=== PATIENT | male | born 1975 | race Caucasian/White ===

== ENCOUNTER 2016-12-04 20:34 | Emergency (ER) | payer BC ==
[~2016-12-04] VITALS: Ht 175.3 cm; Wt 104.3 kg
[~2016-12-04 20:34] MED LIST: BUDEPRION XL150 MG PO; CARTIA XT240 MG PO; CYCLOBENZ5 MG PO; CYMBALTA30 MG PO; FLOMAX 0.4MG C0.4 MG PO; HYDROCODONE-APA1 TA1 PO; LOSARTAN POTASS50 MG PO; MEDROL 4MG. DOSE4 MG PO; NEXIUM40 MG PO; NORCO 325 MG-51 TAB PO; PERCOCET 10 MG1 EACH PO; PERCOCET 5/3251 EACH PO; PREDNISONE 20MG20 MG PO; STRATTERA25 MG PO; WELLBUTRIN 150150 MG PO; WELLBUTRIN SR200 MG PO; WELLBUTRIN XL150 MG PO
--- NOTE | 2016-12-04 21:00 | Emergency Room Report ---
History of Present Illness Time Seen by 2030 Presenting Problem in Triage Pt arrived:Walked Presenting Problem:PT STATES HE ONLY HAS LEFT KIDNEY, FEELS LIKE IT IS BLOCKED. VOIDING REGULARLY TODAY. PAIN IN LEFT SIDE BEGAN AT APPROX 1300 Onset of symptoms date/time:12/04/16 or onset unknown for: Treatment Prior to Arrival: TOOK 3 5MG NORCO TODAY [employer] Provided by:LAYPERSON Sepsis Risk Assessment: Temp: 97.4 B/P: 153/99 MAP: 117 Pulse: 88 Resp: 20 Recent fever? N Clinical Suspician of Infection? N Mental Status: 1 - Regular (Normal Baseline) Sepsis Risk:Low Sepsis Risk Have you (or family members/close friends) recently traveled outside the [place]? N If Yes, where/when: Have you had exposure to infectious disease within the past month? N TB? Other? Specify: Source patient, RN notes reviewed, family, old records Exam Limitations no limitations Comment acute onset of lt flank pain with no fever or hematuria Cardiac Chest Pain Chest pain indicative of cardiac No Timing/Duration this evening Severity moderate ALLERGIES Coded Allergies: No Known Allergies (03/31/15) Home Medications Active Scripts HYDROCODONE/ACETAMINOPHEN ([place] 5-325 Tablet) 1 TAB PO TID #90 TAB Prov: 09/05/16 Reported Medications Bupropion Hcl (Wellbutrin SR 200MG) 400 MG PO BID DILTIAZEM HCL (Cartia Xt) 120 MG PO DAILY Losartan Potassium (Losartan 50MG) 50 MG PO DAILY #30 TAB TAMSULOSIN HCL (Flomax 0.4MG) 0.4 MG PO QHS History Medical History General CAD? No Angina: No MT: No Hypertension? Yes Hyperlipidemia? No CHF? No DVT? No PE? No COPD? No Asthma? No Anemia? No GERD? Yes Gastric ulcers? No GI Bleed? No Hernia? No Thyroid Problems? No Hypothyroidism? No CVA? No Seizures? No Diabetes? No Renal Insuffiency? No End Stage Renal Disease? No UTI? No Stones? No BPH? No GB Disease: No Nephritic Syndrome? No Asplenia? No Hepatitis? No Sickle Cell Disease? No Arthritis? Yes Migraines? No Cataracts? No Glaucoma? No MRSA? Yes HIV? No TB? No Anxiety? No Depression? No Cancer? No More? Yes Additional hx: KIDNEY DYSFUNCTION OSTEOARTHRITIS GI BLOCKAGE 7 YEARS Immunization Hx Ped.Immunizations UTD Yes DT/Tetanus 1-4 Years Ago Surgical Hx Previous Surgery?Y KIDNEY LEFT THYROID REMOVED [place] 2014 Social History Smoking Hx Smoker: Never Smoker Tobacco: No Packs/day N/A Alcohol Alcohol: No Drugs none Review of Systems All Other Systems Reviewed and Negative Constitutional denies fever Eyes denies drainage ENT denies: ear discharge, epistaxis, throat pain. Respiratory denies cough, denies shortness of breath, denies wheezing Cardiovascular denies chest pain, denies palpitations, denies syncope Gastrointestinal see HPI, denies diarrhea, nausea, vomiting Genitourinary see HPI. denies: dysuria, frequency, hesitancy, hematuria, scrotal/testicular pain. Musculoskeletal denies back pain, denies joint pain, denies joint swelling, denies neck pain Skin denies rash Psychiatric/Neurological denies headache, denies seizure Physical Exam Vital Signs Vital Signs Date Time Temp Pulse Resp B/P Pulse O2 O2 Flow FiO2 Ox Delivery Rate 12/04 2336 75 20 162/97 97 12/04 2328 22 12/04 2327 22 12/04 2253 85 22 152/102 98 12/04 2224 97.5 85 22 158/98 98 12/04 2140 97.9 72 18 138/94 97 12/04 2038 97.4 88 20 153/99 96 - WBC >12,000 or <4,000 or 10% bands? 2 or more SIRS Criteria Met? B/P:162/97 MAP:117 Creatinine >2.0? UA output<0.5ml/kg/hr for 2 hrs? Platelet count >100,000? Lactate >2.0mmol/1? INR >1.2 or PTT > than 60 sec? Evidence of Organ Dysfunction? Provider documented clinical suspician of infection? N Sepsis Criteria Count: 1 Sepsis Risk: Low Sepsis Risk General Appearance no apparent distress Eye Exam - bilateral eye PERRL, bilateral eye EOMI Ear, Nose, Throat normal ENT inspection Neck supple Respiratory Status No: respiratory distress. Cardiovascular regular rate/rhythm Peripheral Pulses Pulses normal Yes Gastrointestinal soft, no organomegaly, no pulsatile mass, no guarding, no rebound Back no CVA tenderness, no vertebral tenderness Extremities normal inspection Strength 4 Upper Ext (L), 4 Upper Ext (R), 4 Lower Ext (L), 4 Lower Ext (R) Neurologic alert, production lead II-XII nml as tested, no motor/sensory deficits Reflexes Reflexes normal No Mental status normal mood/affect Skin no rash cons.w/shingles Medical Decision Making LABS/Meds/Orders Pt receiving controlled substance in ED? No Results/Orders Laboratory Tests 12/04/162252: Urine Color YELLOW, Urine Appearance CLEAR, Urine pH 7.0, Ur Specific [place] 1.010, Urine Protein NEGATIVE, Urine Ketones NEGATIVE, Urine Blood 2+ H, Urine Nitrate NEGATIVE, Urine Bilirubin NEGATIVE, Urine Urobilinogen 0.2, Ur Leukocyte Esterase NEGATIVE, Urine RBC 20-50, Urine WBC OCC, Urine Glucose NEGATIVE 12/04/162039: Sodium 143, Potassium 3.5, Chloride 104, Carbon Dioxide 30, BUN 14, Creatinine 1.4 H, Estimated Creat Clear 101, Estimated GFR (MDRD) 56, Glucose 141 H, Calcium 8.7, Total Bilirubin 0.7, AST 14 L, ALT 44, Alkaline Phosphatase 162 H , Total Protein 6.8, Albumin 3.9, Globulin 2.9, Albumin/Globulin Ratio 1.3, Amylase 28, Lipase 58 L, WBC 8.4, RBC 4.96, Hgb 14.5, Hct 43.8, MCV 88.2, RDW 13.3, Plt Count 165, MPV 6.9 L, Gran % 80.5 H, Gran # 6.8, Lymphocytes % 13.5, Monocytes % 5.0, Eosinophils % 0.7, Basophils % 0.3, Lymphocytes # 1.1, Monocytes # 0.4, Eosinophils # 0.1, Basophils # 0.0, PUBS MCHC 33.1, MCH 29.1 Current Medication Orders Sig/Eliot Start time Last Medication Dose Route Stop Time Status Admin Hydromorphone HCl 1 MG ONCE ONE 12/04 2329 DC 12/04 IV 12/04 2330 232 Ketorolac 30 MG ONCE ONE 12/04 2329 ME 12/04 Tromethamine IV 12/04 2330 232 Promethazine HCl 12.5 MG ONCE ONE 12/04 2329 DC 12/04 IV 12/04 2330 232 Sodium Chloride 25 ML ONCE ONE 12/04 2329 DC IV 12/04 2344 Promethazine HCl 0 .STK-MED ONE 12/04 2322 DC .ROUTE Sodium Chloride 25 ML .STK-MED ONE 12/04 2322 DC IV Hydromorphone HCl 0 .STK-MED ONE 12/04 2321 DC .ROUTE Ketorolac 0 .STK-MED ONE 12/04 2321 DC Tromethamine .ROUTE Sodium Chloride 1,000 ML .STK-MED ONE 12/04 2128 DC IV Sodium Chloride 10 ML PRN PRN 12/04 2114 AC IV 12/05 2100 Sodium Chloride 1,000 ML .Q1H1M 12/04 2114 DC 12/04 IV 12/04 Sodium Chloride 10 ML PRN PRN 12/04 2114 AC IV 12/05 2100 Orders Procedure Date/time Status DIET-NOTHING BY MOUTH 12/[address] ABD & PELVIS W/O CONTRAST 12/[address] SCAN REQ 12/04 2100 Active IV SALINE LOCK 12/04 2100 Active URINALYSIS/COMPLETE 12/04 2100 Complete LIPASE 12/04 2100 Complete COMPLETE METABOLIC PANEL 12/04 2100 Complete CBC WITH AUTO DIFF 12/04 2100 Complete AMYLASE 12/04 2100 Complete XRAY/CT/US XRAY/CT/US CT abdomen, pelvis CT interpretation by discussed w/radiologist Time results known: 2317 CT Results abnormal (see report) Departure Departure Time of Disposition 2318 Disposition DC Home or Self Care(routine) Clinical Impression Primary Impression: Renal colic on left side Condition STABLE Referrals Krystian BURTON,John Holley MD,[place] Patient Instructions DI for Kidney Stones Additional Instructions strain urine and call pcp in am for follow up and also call urology Discharge Counseling Counseled pt/family regarding diagnosis, test results, medications/RX, follow up needs ED Critical Care Critical Care No at [phone]
[2016-12-04 21:10] LABS: HEMOGLOBIN 14.5 g/dL (14.1-18.0); LYMPH # 1.1 K/mm3 (0.7-4.5); LYMPH % 13.5 % (10-50)
[2016-12-04 23:12] LABS: URINE BILIRUBIN - DIPSTICK NEGATIVE (NEG); URINE BLOOD 2+ (NEG)
--- NOTE | 2016-12-04 23:49 | RADIOLOGY REPORT PS360 ---
CT ABD PELVIS W/O CONTRAST HISTORY: FLANK PAIN left flank pain. Abdominal pain. Patient Age: 41 years: Male Ordering Physician: Jeannette Hinkle MD TECHNIQUE: Helical CT scans abdomen pelvis with no oral or IV contrast. COMPARISON :No previous abdominal studies. There is a MRI of the lumbar spine from June 30, 2015 which partially images kidneys bilaterally and used for comparison FINDINGS Abnormal LEFT KIDNEY. Generous Hydronephrosis left kidney, with very prominent extrarenal pelvis on left again seen as was incidentally noted on a previous MRI lumbar spine from June 2015. Similar appearance again today with perhaps incremental additional left hydronephrosis seen today.. Also note Left kidney/hypertrophy due to the small shrunken contralateral right kidney.. On today's CT, note small 2-3 x 3.5 mm ureteral calcification along LEFT aspect of the proximal most ureter at left UPJ. There is likely some underlying left UpJ stenosis contributing to this long-standing appearance otherwise.. Would again suggest a follow-up postcontrast CT with delayed images at some point unless this has been previously evaluated worked up elsewhere. Up to 11 mm calculus nonobstructive calculus lower pole left kidney additionally noted. Axial slice 69. Coronal 45.. Abnormal RIGHT KIDNEY. Small atrophic right kidney measuring up to 8.5 cm in length. At lower pole there are 3 tiny ( 2 mm or less) calcifications towards lower pole right kidney as seen on coronal image 57... These Nonobstructive calcification/calculi likely related to scarring. The diffuse atrophy at this small right kidney is similar to prior 2016 MR..- There is some mild fullness of the right lower calyceal system right ureter is unremarkable. Pelvis. Streak artifact from the metallic right bipolar femoral prosthesis partially skiers the lower pelvis. However the urinary bladder appears satisfactory with no calculi or obvious mass. There are numerous phleboliths at the pelvic basin but no pelvic adenopathy. GI tract. No bowel dilatation or obstruction. To moderate stool throughout the entire large bowel. There is diverticulosis throughout the sigmoid colon and left colon with no good evidence of diverticulitis. A few diverticula are also seen at the hepatic flexure. Terminal ileum and appendix appear normal. UPPER ABDOMEN. Liver. No focal lesions evident on this noncontrast study. Gallbladder. No calcified stones. Pancreas. Unremarkable. Adrenals. Slight wispy appearance about adrenals bilaterally I suspect reflects a tiny fat density nodules scattered throughout.. But no large nor worrisome adrenal mass.. Abnormal Spleen. Abnormal. Multiple hypodense nodular like areas throughout this enlarged spleen.. Postcontrast imaging are suggested. Including delayed images. Warrants correlation with manual CBC Lung bases. Bibasilar atelectasis. Mild cardiomegaly with left ventricular configuration.. . No osseous lesions. I would note that the muscles of the right hemipelvis and gluteus are atrophy compared to the left... Moderate Prostate measuring 5.2 cm diameter. IMPRESSION: 1. LEFT hydronephrosis with prominent dilated left extrarenal pelvis.. Is similar to June 2015 MRI lumbar images.. Relatively Enlarged hypertrophy left kidney again noted. 2. There is a 3.5 x 3 mm calculus/calcification at the left UPJ.. Left ureter inferior to this is normal caliber. But could contribute to obstructive uropathy but majority the findings reflect Long-standing left hydronephrosis as seen on MR from June 2015. Suspect underlying left UVJ stenosis. ... 3. Also note 11 mm nonobstructive calculus/calcification lower pole left kidney 4. RIGHT kidney. Small atrophic right kidney with a few tiny pinpoint calculi/calcifications at its lower pole. ... Prominent Right extrarenal pelvis with question of Minor hydronephrosis right kidney,-. However overall these collecting system features appearance similar with no significant change since 2016 limited MRI views of this area. 5..*Multiple hypodense splenic nodules with lobulated enlarged spleen / splenomegaly.. This will require follow-up although may be a long-standing feature. (Would encourage postcontrast CT with delayed images abdomen pelvis, but if significant abnormal renal function recommend ultrasound for as next up imaging to survey abdomen. AlsoRecommend correlation with manual CBC) 6 Colonic diverticulosis. No diverticulitis.
[2016-12-05 00:17] VITALS: BP 148/93
[2016-12-06] MEDS ORDERED: NORCO 325 MG-51 TAB PO (11:05)
== END 2016-12-05 00:18 | disposition home or self-care (01) ==
LOC: ER 20:34
PROVIDERS: Emergency Medicine
DX: N23 Unspecified renal colic (principal); Z90.5 Acquired absence of kidney; E89.0 Postprocedural hypothyroidism; I10 Essential (primary) hypertension; Z79.899 Other long term (current) drug therapy

== ENCOUNTER → 2016-12-21 | Outpatient (CLI) | payer BC ==
--- NOTE | 2017-01-05 10:57 | RADIOLOGY REPORT PS360 ---
US BIOPSY OR PARACENTESIS HISTORY: THYROID NODULEs at multinodular enlarged right lobe Patient Age: 41 years: Male Ordering Physician: Chaz Umanzor MD . HISTORY:. Left thyroid is been removed. Multinodular goiter with nodules on right TECHNIQUE: Ultrasound guided FNA aspiration right thyroid nodule FINDINGS AND PROCEDURE: ULTRASOUND right thyroid The left lobe is been removed . Enlarged multinodular right lobe. The largest is slightly hyperechoic nodule is seen at the very deep mid right lobe. Lobe. This measuring up to 3.4 cm length x 1.7 cm. On today's scan. This was labeled SITE A on today's biopsy. second hypoechoic nodule noted was along the anterior right. It appears elongated measuring up to 3 cm x 1.3 cm.. This is site B on today's study and biopsy These images also determined the best approach for access to perform aspiration biopsy of these nodules. With Scanning by Dr. Gastelum ULTRASOUND-GUIDED FNA BIOPSY x2 : 2 right thyroid nodules sampled Patient given 1 mg of Xanax prior to biopsy . Following sterile preparation as well as local skin, and cautious deeper placement of Xylocaine anesthetic.; Site B: The hypoechoic nodule anteriorly was first encountered with specimens here labeled site B. Under ultrasound guidance the FNA biopsy needle, was advanced to the nodule and positioned. 25-gauge Needle tip was observed passing into the nodule on each of 3 FNA biopsies passes. Generous material was obtained in a cytology container and submitted for cytopathology review SITE A..: We then proceeded to the deeper nodule more difficult to access labeled SITE A.. This is a large gland and the 25-gauge needle had to be inserted into the full length of the needle to the hub to access this larger more posterior nodule. However we did perform 3 passes with 25-gauge needle. FNA Material obtained, and submitted for cytopathology evaluation. Patient tolerated procedure well. Cytopathology here reveals a benign follicular nodule at both nodules. No evidence malignancy at either nodule.: IMPRESSION: Successful FNA biopsy of 2 nodules right lobe.. The deeper larger hyperechoic nodule is labeled site A . This was site requested forFNA biopsy and was primary target. Cytology here reveals a benign follicular nodule. . The more superficial elongated hypoechoic nodule labeled site B was also sampled and submitted in a separate cytopathology container for evaluation. Cytology here also reveals a benign follicular nodule. . .
== END ==
LOC: RAD 12-13 13:00
PROC: 0G9H3ZX Drainage of Right Thyroid Gland Lobe, Percutaneous Approach, Diagnostic (ICD-10-PCS; principal; 2016-12-21)
DX: D49.7 Neoplasm of unspecified behavior of endocrine glands and other parts of nervous system (principal); E04.9 Nontoxic goiter, unspecified

== ENCOUNTER → 2017-02-02 | Outpatient (CLI) | payer BC ==
[2017-02-02 15:23] LABS: BUN 12 mg/dL (7-18)
[2017-02-02 15:25] LABS: GFR (ESTIMATED) 82 ML/MIN (>60)
== END ==
LOC: LAB 11:06
PROVIDERS: Otolaryngology
DX: E04.1 Nontoxic single thyroid nodule (principal); Z01.812 Encounter for preprocedural laboratory examination

== ENCOUNTER → 2017-02-14 | Outpatient (CLI) | payer BC ==
[2017-02-14 12:02] LABS: AMPHETAMINES/METAMPHETAMINES NEGATIVE ng/mL (<1000)
[2017-02-18 07:38] LABS: Opiates Negative (Cutoff=100)
== END ==
LOC: LAB 10:18
PROVIDERS: Anesthesiology
DX: Z79.899 Other long term (current) drug therapy (principal)

== ENCOUNTER 2017-02-24 00:57 | Emergency (ER) | payer BC ==
[~2017-02-24] VITALS: Ht 175.3 cm; Wt 104.3 kg
--- OUTSIDE RECORDS SUMMARY | 2017-02-24 01:04 | External Medical Summary Rpt | CCD ---
Author Author , RISSA KWOK Address Unknown Phone [email or web address] Purpose Continuity of Care Document - 02-02-2017 through 2016 Problems Code Diagnosis DOS Provider Status N23 UNSPECIFIED RENAL COLIC Results Labs Lab Lab Date Result Refere Interp Status Commen Order Detail nces retati t Range on Urine 9-analyte drugs of abuse screening (02-14-2017 10:19) Comment: Positive urine drug screen samples are stored for 7 days. Comment: Contact the Lab if confirmation of positives is needed. Urine NEGATIV <1000 complet ampheta 017 E ed mine 10:19 NEGATIV screeni E L ng test ng/mL Urine = <200 complet barbitu 017 NEGATIV ed rates 10:19 E ng/mL measure ment by screen Serum = 200 complet or 017 NEGATIV ng/mL ed plasma 10:19 E ng/mL benzodi azepine s measure m Cocaine = <300 complet 017 NEGATIV ed measure 10:19 E ng/g ment (mass/v olume) Methado = <300 complet ne 017 NEGATIV ed measure 10:19 E ng/mL ment (mass/v olume) Opiates = <300 complet 017 NEGATIV ed measure 10:19 E ng/mL ment (mass/v olume) Phencyc = <25 complet lidine 017 NEGATIV ed measure 10:19 E ng/mL ment (mass/v olume) 11-hydr NEGATIV <50 complet oxy 017 E ed delta-9 10:19 NEGATIV E L tetrahy ng/mL drocann abinol Opiates and Oxycodone(GC/MS),U (02-14-2017 10:19) Oxycodo Negativ Cutoff= complet ne/Oxym 017 e 100 ed orph 10:19 Comment: Test includes Oxycodone and Oxymorphone Comment: Performed at: [facility] Comment: [address], [facility], [place] [id number] Comment: Transcription Coordinator: Juancho Christianson MD, Phone: [phone] Opiates Negativ Cutoff= complet 017 e 100 ed 10:19 Comment: Opiate test includes Codeine, Morphine, Hydromorphone, Hydrocodone. Comprehensive metabolic panel (02-02-2017 11:08) Serum 02-02-2 = 1.6 1.1-1.8 complet or 017 ed plasma 11:08 albumin /globul in mass ra Serum 2 = 4.1 3.4-5.0 complet or 017 gm/dL ed plasma 11:08 albumin measure ment (mas Serum = 144 46-116 complet or 017 U/L ed plasma 11:08 alkalin e phospha tase emilee Serum 2 = 0.3 0.2-1.0 complet or 017 mg/dL ed plasma 11:08 total bilirub in measure m Serum = 12 7-18 complet or 017 mg/dL ed plasma 11:08 urea nitroge n measure men Serum = 8.7 8.5-10. complet or 017 mg/dL 1 ed plasma 11:08 calcium measure ment (mas Serum = 102 98-107 complet or 017 mmoL/L ed plasma 11:08 chlorid e measure ment (mo Carbon = 31 21.0-32 complet dioxide 017 mmoL/L .0 ed 11:08 measure ment Serum 2 = 1.0 0.70-1. complet or 017 mg/dL 30 ed plasma 11:08 creatin ine measure ment ( Estimat = 82 >60 complet ed 017 ML/MIN ed glomeru 11:08 lar filtrat ion rate (GF Comment: REFERENCE RANGE: >60 ML/MIN/1.73 SQUARE METERS Comment: If this patient is -[place] Citizen, then multiply the Comment: result by 1.210. Serum 02-02-2 = 2.5 1.3-3.2 complet globuli 017 gm/dL ed n 11:08 measure ment (mass/v olume) Serum 2 = 74 74-106 complet or 017 mg/dL ed plasma 11:08 glucose measure ment (mas Serum 02-02-2 = 3.9 3.5-5.1 complet potassi 017 mmoL/L ed um 11:08 measure ment Serum 02-02-2 = 143 136-145 complet sodium 017 mmoL/L ed measure 11:08 ment Serum 02-02-2 = 16 15-37 complet or 017 U/L ed plasma 11:08 asparta te aminotr ansfera ALT = 29 12-78 complet (SGPT) 017 U/L ed ser/eugenia 11:08 s Protein 2 = 6.6 6.4-8.2 complet total 017 gm/dL ed ser/eugenia 11:08 s Serum or plasma intact parathyroid hormo (02-02-2017 11:08) Serum 2 = 81.0 15-65 complet or 017 pg/mL ed plasma 11:08 intact parathy roid hormo Comment: Performed at: [facility] Comment: [address], [place] [id number] Comment: Transcription Coordinator: Cem Stewart PhD, Phone: [phone] Renal function panel (02-02-2017 11:08) Phospho 02-02-2 = 3.6 2.4-4.9 complet daisha 017 mg/dL ed measure 11:08 ment Calcium ionized ser (02-02-2017 11:08) Calcium = 5.1 4.5-5.6 complet 017 mg/dL ed ionized 11:08 ser Comment: Performed at: [facility] Comment: [id number], [place] [id number] Comment: Transcription Coordinator: Cem Stewart PhD, Phone: [phone]
--- OUTSIDE RECORDS SUMMARY | 2017-02-24 01:04 | External Medical Summary Rpt | CCD ---
Author Author , RISSA KWOK Address Unknown Phone [email or web address] Purpose Continuity of Care Document - 02-02-2017 [...] [facility] Comment: [address], [facility], [place] [id number] Comment: Computer Hardware Engineer: Juancho Christianson MD, Phone: [phone] Opiates Negativ Cutoff= complet 017 e 100 [...] SQUARE METERS Comment: If this patient is -[place], then multiply the Comment: result by 1.210. [...] intact parathy roid hormo Comment: Performed at: [facility] Comment: [address], [place] [id number] Comment: Computer Hardware Engineer: Cem Stewart PhD, Phone: [phone] Renal function panel (02-02-2017 11:08) Phospho 02-02-2 = 3.6 2.4-4.9 complet daisha 017 mg/dL ed measure 11:08 ment Calcium ionized ser (02-02-2017 11:08) Calcium = 5.1 4.5-5.6 complet 017 mg/dL ed ionized 11:08 ser Comment: Performed at: [facility] Comment: [address], [place] [id number] Comment: Computer Hardware Engineer: Cem Stewart PhD, Phone: [phone]
[2017-02-24] MEDS ORDERED: LISINOPRIL20 MG PO (01:05)
--- OUTSIDE RECORDS SUMMARY | 2017-02-24 01:05 | External Medical Summary Rpt | CCD ---
Author Author , RISSA KWOK Address Unknown Phone [email or web address] Immunization Name Date Rout CVX Reac Dose Comm Prov Is Faci e tion ent ider Refu lity Give sed n Infl 09-2 141 999 Hist NORT No NORT uenz 2-20 [facility] ONCM ONCM a, 14 al A1 A1 Seas Info onal rmat ion - Sour ce Unsp ecif ied
--- OUTSIDE RECORDS SUMMARY | 2017-02-24 01:05 | External Medical Summary Rpt | CCD ---
Author Author [facility] Organization [employer] Address Unknown Phone Unavailable Purpose Continuity of Care Document - through 2016
--- OUTSIDE RECORDS SUMMARY | 2017-02-24 01:05 | External Medical Summary Rpt | CCD ---
Author Author , RISSA KWOK Address Unknown Phone [email or web address] Immunization Name Date Rout CVX Reac Dose Comm Prov Is Faci e tion ent ider Refu lity Give sed n Infl 09-2 141 999 Hist NORT No NORT uenz 2-20 [facility] ONCM ONCM a, 14 al A1 A1 Seas Info onal rmat ion - Sour ce Unsp ecif ied
[2017-02-24 01:06] LABS: HEMOGLOBIN 13.7 g/dL (14.1-18.0); LYMPH # 1.4 K/mm3 (0.7-4.5)
--- NOTE | 2017-02-24 01:57 | Emergency Room Report ---
History of Present Illness Time Seen by MD Guy Presenting Problem in Triage Pt arrived:Ambulance Stretcher Presenting Problem:C/O PAIN TO LEFT FLANK PAIN Onset of symptoms date/time:02/24/1711/03/1799 or onset unknown for: Treatment Prior to Arrival: LORTAB 5 MG 1900 BENEFITS CONSULTING ANALYST Provided by:SELF Sepsis Risk Assessment: Temp: 98.7 B/P: 162/85 MAP: 113 Pulse: 83 Resp: 18 Recent fever? N Clinical Suspician of Infection? N Mental Status: 1 - Regular (Normal Baseline) Sepsis Risk:Low Sepsis Risk Have you (or family members/close friends) recently traveled outside the [place]? N If Yes, where/when: Have you had exposure to infectious disease within the past month? N TB? Other? Specify: Source patient, RN notes reviewed, family, EMS, old records Exam Limitations no limitations Comment pt with acute lt flank pain which started tonight with hx of kidney stone Cardiac Chest Pain Chest pain indicative of cardiac No Timing/Duration this evening Severity moderate ALLERGIES Coded Allergies: No Known Allergies (03/31/15) Home Medications Active Scripts HYDROCODONE/ACETAMINOPHEN ([place] 5-325 Tablet) 1 TAB PO TID #90 TAB Prov: 12/06/16 Reported Medications Lisinopril 20 MG PO DAILY #30 Bupropion Hcl (Wellbutrin SR 200MG) 400 MG PO BID DILTIAZEM HCL (Cartia Xt) 120 MG PO DAILY Losartan Potassium (Losartan 50MG) 50 MG PO DAILY #30 TAB TAMSULOSIN HCL (Flomax 0.4MG) 0.4 MG PO QHS History Medical History General CAD? No Angina: No NC: No Hypertension? Yes Hyperlipidemia? No CHF? No DVT? No PE? No COPD? No Asthma? No Anemia? No GERD? Yes Gastric ulcers? No GI Bleed? No Hernia? No Thyroid Problems? No Hypothyroidism? No CVA? No Seizures? No Diabetes? No Renal Insuffiency? No End Stage Renal Disease? No UTI? No Stones? No BPH? No GB Disease: No Nephritic Syndrome? No Asplenia? No Hepatitis? No Sickle Cell Disease? No Arthritis? Yes Migraines? No Cataracts? No Glaucoma? No MRSA? Yes HIV? No TB? No Anxiety? No Depression? No Cancer? No More? Yes Additional hx: KIDNEY DYSFUNCTION OSTEOARTHRITIS GI BLOCKAGE 7 YEARS Immunization Hx DT/Tetanus 1-4 Years Ago Surgical Hx Previous Surgery?Y KIDNEY LEFT THYROID REMOVED [place] 2014 Social History Smoking Hx Smoker: Never Smoker Tobacco: No Packs/day N/A Alcohol Alcohol: No Drugs none Review of Systems All Other Systems Reviewed and Negative Constitutional denies fever Eyes denies drainage ENT denies: ear discharge, epistaxis, throat pain. Respiratory denies cough, denies wheezing Cardiovascular denies chest pain, denies syncope Gastrointestinal denies abdominal pain, denies nausea, denies vomiting Genitourinary see HPI. denies: dysuria, frequency, hesitancy, hematuria, scrotal/testicular pain. Musculoskeletal denies back pain, denies joint pain, denies joint swelling, denies neck pain Skin denies rash Psychiatric/Neurological denies headache, denies seizure Physical Exam Vital Signs Vital Signs Date Time Temp Pulse Resp B/P Pulse O2 O2 Flow FiO2 Ox Delivery Rate 02/24 0226 83 18 162/85 100 02/24 0108 18 02/24 0101 98.7 67 18 170/85 99 - WBC >12,000 or <4,000 or 10% bands? 2 or more SIRS Criteria Met? B/P:162/85 MAP:113 Creatinine >2.0? UA output<0.5ml/kg/hr for 2 hrs? Platelet count >100,000? Lactate >2.0mmol/1? INR >1.2 or PTT > than 60 sec? Evidence of Organ Dysfunction? Provider documented clinical suspician of infection? N Sepsis Criteria Count: 0 Sepsis Risk: Low Sepsis Risk General Appearance no apparent distress Eye Exam - bilateral eye PERRL, bilateral eye EOMI Ear, Nose, Throat normal ENT inspection Neck supple Respiratory Status No: respiratory distress. Cardiovascular regular rate/rhythm Peripheral Pulses Pulses normal Yes Gastrointestinal soft Back no CVA tenderness Extremities normal inspection Strength 4 Upper Ext (L), 4 Upper Ext (R), 4 Lower Ext (L), 4 Lower Ext (R) Neurologic alert, data communications technician II-XII nml as tested, no motor/sensory deficits Reflexes Reflexes normal No Mental status normal mood/affect Skin no rash cons.w/shingles Medical Decision Making LABS/Meds/Orders Pt receiving controlled substance in ED? No Results/Orders Laboratory Tests 02/24/17 0200: Urine Color YELLOW, Urine Appearance CLEAR, Urine pH 6.5, Ur Specific Fisher <= 1.005, Urine Protein NEGATIVE, Urine Ketones NEGATIVE, Urine Blood TRACE-INTACT, Urine Nitrate NEGATIVE, Urine Bilirubin NEGATIVE, Urine Urobilinogen 0.2, Ur Leukocyte Esterase NEGATIVE, Urine Glucose NEGATIVE 02/24/1799: Sodium 140, Potassium 4.0, Chloride 104, Carbon Dioxide 30, BUN 15, Creatinine 1.7 H, Estimated Creat Clear 83, Estimated GFR (MDRD) 44, Glucose 165 H, Calcium 8.7, Total Bilirubin 0.2, AST 20, ALT 34, Alkaline Phosphatase 128 H, Total Protein 6.6, Albumin 3.8, Globulin 2.8, Albumin/Globulin Ratio 1.4, WBC 8.4, RBC 4.59 L, Hgb 13.7 L, Hct 40.5 L, MCV 88.1, RDW 12.8, Plt Count 176, MPV 8.2, Gran % 76.9, Gran # 6.4, Lymphocytes % 17.0, Monocytes % 4.8, Eosinophils % 0.8, Basophils % 0.4, Lymphocytes # 1.4, Monocytes # 0.4, Eosinophils # 0.1, Basophils # 0.0, PUBS MCHC 33.8, MCH 29.8 Current Medication Orders Sig/Eliot Start time Last Medication Dose Route Stop Time Status Admin Ketorolac 0 .STK-MED ONE 02/25 104 DC Tromethamine .ROUTE Ondansetron HCl 0 .STK-MED ONE 02/25 104 DC .ROUTE Sodium Chloride 1,000 ML .STK-MED ONE 02/25 104 DC IV Ketorolac 30 MG ONCE ONE 02/24 100 DC 02/24 Tromethamine IV 02/24 101 0108 Ondansetron HCl 4 MG ONCE ONE 02/24 100 DC 02/24 IV 02/24 101 0107 Sodium Chloride 10 ML PRN PRN 02/24 100 AC IV 02/25 005 Sodium Chloride 1,000 ML .Q1H1M 02/24 100 DC 02/24 IV 02/24 200 0108 Sodium Chloride 10 ML PRN PRN 02/24 100 AC IV 02/25 100 Orders Procedure Date/time Status DIET-NOTHING BY MOUTH 02/[address] ABD & PELVIS W/O CONTRAST 02/[address] SCAN REQ 02/24 100 Complete IV SALINE LOCK 02/24 100 Active URINALYSIS/COMPLETE 02/24 100 Complete CBC WITH AUTO DIFF 02/24 100 Complete CHEM 12 PROFILE 02/24 100 Complete XRAY/CT/US XRAY/CT/US CT abdomen, pelvis CT interpretation by discussed w/radiologist Time results known: 0241 CT Results abnormal (see report) Departure Departure Time of Disposition 0232 Disposition DC Home or Self Care(routine) Clinical Impression Primary Impression: Renal colic on left side Condition STABLE Referrals Krystian BURTON,John Holley MD,[place] Patient Instructions DI for Kidney Stones Additional Instructions call urology and pcp for follow up Discharge Counseling Counseled pt/family regarding diagnosis, test results, medications/RX, follow up needs ED Critical Care Critical Care No at 0241
[2017-02-24 02:02] LABS: URINE BILIRUBIN - DIPSTICK NEGATIVE (NEG); URINE BLOOD TRACE-INTACT (NEG)
[2017-02-24 03:04] VITALS: BP 164/92
--- NOTE | 2017-02-24 08:09 | RADIOLOGY REPORT PS360 ---
CT ABD PELVIS W/O CONTRAST CLINICAL INDICATION: Left flank pain ABD PAIN ORDERING PHYSICIAN: Jeannette Hinkle MD PATIENT AGE: 42 years COMPARISON: 12/04/2016 TECHNIQUE: Axial images obtained with sagittal and coronal reformats. PROCEDURE: Oral Contrast: None IV Contrast: None . FINDINGS: The lung bases are clear. The liver, gallbladder, pancreas, are unremarkable. The adrenal glands are somewhat ill-defined but not enlarged. There also appears somewhat small and thin. There is splenomegaly with multiple hypodense lesions of the spleen not significant changed. There is severe left hydronephrosis not significant change. There is some minimal stranding in the left perinephric renal fat. A 7 mm stone is present in the lower pole the left kidney. Unchanged calcification noted in the left proximal ureteral wall which is not significant change. It is doubtful this is causing obstruction. Right renal atrophy and scarring once again noted with right renal parenchymal calcification. Unremarkable appendix. There is diverticulosis of the descending and sigmoid colon. Mild thickening versus nondistention involves the transverse colon, descending colon, and rectosigmoid colon. No evidence of diverticulitis. No pelvic mass or focal inflammatory change. There has been prior right hip arthroplasty. No acute bony findings. IMPRESSION: 1. No change left hydronephrosis. There is mild amount of surrounding left perinephric edema which could be related to underlying infection 2. Nonobstructing left nephrolithiasis with a small calcification in the left proximal ureteral wall. 3. Atrophic changes of the right kidney. 4. Numerous unchanged splenic masses with splenomegaly 5. Nondistention versus thickening of the colon. Colitis is not excluded
== END 2017-02-24 03:08 | disposition home or self-care (01) ==
LOC: ER 00:57
PROVIDERS: Emergency Medicine
DX: N23 Unspecified renal colic (principal); I10 Essential (primary) hypertension; E89.0 Postprocedural hypothyroidism; M19.90 Unspecified osteoarthritis, unspecified site; Z79.899 Other long term (current) drug therapy; Z79.891 Long term (current) use of opiate analgesic
CPT/HCPCS: J2405